=== PATIENT | male | born 2000 | race Two or more races ===

== ENCOUNTER 2024-02-17 14:06 | Emergency (ER) | payer SELFPAY ==
[~2024-02-17] VITALS: Ht 162.6 cm; Wt 62.5 kg
[2024-02-17 15:56] LABS: BASOPHILS % (AUTO) 0.8 % (0.0-2.0); EOSINOPHILS % (AUTO) 0.2 % (1.0-6.0); HEMATOCRIT 44.4 % (41-53); HEMOGLOBIN 14.7 g/dL (13.5-17.5); LYMPHOCYTES # (AUTO) 1.5 K/uL (1.0-4.8); LYMPHOCYTES % (AUTO) 23.8 % (22.0-44.0); MEAN CORPUSCULAR HEMOGLOBIN 29.4 pg (26.0-34.0); MEAN CORPUSCULAR HGB CONC 33.1 G/dL (31.0-37.0); MEAN CORPUSCULAR VOLUME 89 fL (80-100); MONOCYTES # (AUTO) 0.5 K/uL (0.1-1.0); MONOCYTES % (AUTO) 8.6 % (2.0-9.0); NEUTROPHILS # (AUTO) 4.1 K/uL (1.8-7.7); NEUTROPHILS % (AUTO) 66.6 % (40.0-70.0); PLATELET COUNT (AUTO) 415 K/uL (150-450); WHITE BLOOD COUNT (AUTO) 6.2 K/uL (4.5-11.0)
[2024-02-17 16:07] LABS: ANION GAP 11 mmol/L (8-16); CALCIUM, TOTAL 9.3 mg/dL (8.8-10.5); CARBON DIOXIDE 28 mmol/L (22-29); CHLORIDE 102 mmol/L (98-107); CREATININE 1.45 mg/dL (0.60-1.30); GLOMERULAR FILTR. RATE CALC 60 mL/min (>60); GLUCOSE,RANDOM 107 mg/dL (70-110); SODIUM SERUM 141 mmol/L (136-145); UREA NITROGEN, BLOOD 9 mg/dL (7-18)
[2024-02-17 16:14] LABS: ALCOHOL, BLOOD (SERUM) < 3 mg/dL (0-10)
[2024-02-17] MEDS: DiphenhydrAMINE HCL 50 MG/ML VIAL IM ONE (16:48)
[2024-02-17] MEDS: MIDAZOLAM HCL 5 MG/ML VIAL IM ONE (16:48)
[2024-02-17 18:32] VITALS: BP 114/84; PULSE 72; RESP 20
[2024-02-17 21:21] LABS: PH,URINE DRUG SCREEN 6.5 (5.0-8.0)
[2024-02-17 21:39] LABS: ALCOHOL, URINE DRUG SCREEN NEGATIVE (NEGATIVE); AMPHET/METH SCREEN,URINE POSITIVE (NEGATIVE); BARBITURATE SCREEN, URINE NEGATIVE (NEGATIVE); BENZODIAZEPINES SCREEN,URINE POSITIVE (NEGATIVE); CANNABINOID SCREEN,URINE NEGATIVE (NEGATIVE); COCAINE SCREEN,URINE NEGATIVE (NEGATIVE); METHADONE SCREEN, URINE NEGATIVE (NEGATIVE); OPIATE SCREEN,URINE NEGATIVE (NEGATIVE); PHENCYCLIDINE SCREEN,URINE NEGATIVE (NEGATIVE)
[2024-02-17] MEDS: POTASSIUM CHLORIDE 20 MEQ ER TABLET PO ONE (21:57)
== END 2024-02-17 22:51 | disposition home or self-care (01) ==
LOC: EMS 14:09
DX: F15.10 Other stimulant abuse, uncomplicated (principal); E87.6 Hypokalemia
CPT/HCPCS: 99284; 80048; 85025; 36415; 96372; 80307; G0480; J1200; J2250